=== PATIENT | male | born 1965 | race Caucasian/White ===

== ENCOUNTER 2021-08-01 20:44 | Emergency (ER) | payer OTHER ==
[2021-08-01] MEDS ORDERED: AMOX TR-K CLV1 EAC4 PO (21:34)
== END 2021-08-01 21:45 | disposition home or self-care (01) ==
LOC: FER 20:44
DX: S61.250A Open bite of right index finger without damage to nail, initial encounter (principal); E11.9 Type 2 diabetes mellitus without complications; I10 Essential (primary) hypertension; Z23 Encounter for immunization; Z79.4 Long term (current) use of insulin; Z79.899 Other long term (current) drug therapy; W54.0XXA Bitten by dog, initial encounter; Y92.009 Unspecified place in unspecified non-institutional (private) residence as the place of occurrence of the external cause
CPT/HCPCS: 90471; 90715